=== PATIENT | male | born 1970 | race African-American/Black ===

== ENCOUNTER 2017-10-26 11:55 | Outpatient (RCR) | payer OTHER | END 2017-11-02 08:47 | disposition home or self-care (01) | LOC: WSOH 11:55 | DX: S61.213A Laceration without foreign body of left middle finger without damage to nail, initial encounter (principal); S61.211A Laceration without foreign body of left index finger without damage to nail, initial encounter; S62.603B Fracture of unspecified phalanx of left middle finger, initial encounter for open fracture; W23.0XXA Caught, crushed, jammed, or pinched between moving objects, initial encounter; Y92.59 Other trade areas as the place of occurrence of the external cause; Y99.0 Civilian activity done for income or pay; F17.210 Nicotine dependence, cigarettes, uncomplicated ==